=== PATIENT | male | born 1960 | race Caucasian/White ===

== ENCOUNTER → 2017-06-06 | Outpatient (CLI) | payer OTHER ==
[~2017-06-06] MED LIST: ASPI1TAB PO; ISOVUE-370 76% 100ML VIAL (Q9967) As Ordered ONE; MELO7.5T7 PO; MULT1TAB10 PO; OMEP20CA3 PO
--- NOTE | 2017-06-06 12:42 | REP ---
WHOLE BODY BONE SCAN: Following the intravenous administration of 21 millicuries technetium 99m MDP, the patient's whole body is imaged in the anterior and posterior projections with additional oblique images of the thoracic and pelvis regions performed as well as lateral views of the calvarium, knees, and feet. There is focal arthritic uptake at the L2-3 disc space on the left and L4-5 disc space on the right. There is mild arthritic uptake at the sacroiliac joints and in the anterior inferior cervical spine region. There is mild arthritic uptake at the right hip. There is no compelling scintigraphic evidence of osseous metastases. Renal and bladder activity are seen. IMPRESSION: No compelling scintigraphic evidence of osseous metastases. Signed by Salvatore Sylvester MD 06/06/2017 05:35 P
--- NOTE | 2017-06-07 03:51 | REP ---
Clinical: Follow-up pulmonary nodule. Technique: Axial contrast enhanced images from the thoracic inlet to the upper abdomen using 100 ml Isovue 370 intravenous contrast material with coronal and sagittal re-formations. Comparison: CT abdomen/pelvis dated 05/16/2017. Findings: Innumerable scattered soft tissue pulmonary nodules are appreciated measuring approximately up to 9 mm diameter. Few nodules seen to demonstrate small punctate central calcification (RLL image 72 as example). No pleural effusion/reaction or pneumothorax. Tracheobronchial tree is patent. No significant axillary, hilar, or mediastinal adenopathy noted. Mild to moderate atherosclerotic changes to the thoracic aorta and coronary arteries identified without aortic aneurysm, cardiomegaly or pericardial effusion. Limited upper abdomen demonstrates normal bilateral adrenal glands. Surrounding musculoskeletal structures are intact. Impression: Bilateral scattered soft tissue pulmonary nodules up to 9 mm. Few nodules demonstrate small central calcifications and findings may reflect sequelae of prior granulomas disease. However, the lack of appropriate prior examinations for comparison warrant followup examination. Consider 6 -9 month initial followup examination unless prior examinations are some where available for comparison. No associated adenopathy. No further consolidation or effusion. Signed by Chuck Morales MD 06/07/2017 03:43 A
== END ==
LOC: M RAD 08:03
PROVIDERS: ATTEND Nurse Practitioner Family
DX: R91.1 Solitary pulmonary nodule (principal)
CPT/HCPCS: 71260; Q9967

== ENCOUNTER 2017-07-03 10:36 | Day surgery (SDC) | payer OTHER ==
[~2017-07-03] VITALS: Ht 175.3 cm; Wt 71.7 kg
[~2017-07-03 10:36] MED LIST changes: -ISOVUE-370 76% 100ML VIAL (Q9967) As Ordered ONE
[2017-07-03] MEDS ORDERED: NS 1,000 ML IV ONE (11:00)
[2017-07-03] MEDS ORDERED: LIDOCAINE 2% INJ 100 MG/5 ML SDV (FOR ANES.) As Ordered ONE (11:59)
[2017-07-03] MEDS ORDERED: PROPOFOL 200 MG/20 ML VIAL As Ordered ONE ×2 (11:59→12:13)
--- NOTE | 2017-07-03 12:11 | ROOR ---
Patient Name: Everardo Quintana Procedure Date: 07/03/2017 11:57 AM Date of : 1960 Age: 56 Room: [facility] Gender: Male Note Status: Finalized Procedure: Upper Endoscopy + Biopsies Indications: Heartburn, Exclusion of Duke's esophagus Providers: Adriano Henry MD Referring MD: NATALIE BRASHER NP Requesting Provider: Medicines: Monitored Anesthesia Care Complications: No immediate complications. Procedure: Pre-Anesthesia Assessment: - The heart rate, respiratory rate, oxygen saturations, blood pressure, adequacy of pulmonary ventilation, and response to care were monitored throughout the procedure. The Endoscope was introduced through the mouth, and advanced to the second part of duodenum. The upper GI endoscopy was accomplished without difficulty. The patient tolerated the procedure well. Findings: The Z-line was irregular and was found 40 cm from the incisors. Multiple biopsies were obtained with cold forceps for evaluation to rule out Duke's Esophagus randomly at the gastroesophageal junction. A small hiatal hernia was present. No other significant abnormalities were identified in a careful examination of the stomach. Biopsies were taken with a cold forceps in the gastric antrum for Helicobacter pylori testing. Diffuse mildly erythematous mucosa without active bleeding and with no stigmata of bleeding was found in the duodenal bulb. The exam was otherwise without abnormality. Impression: - Z-line irregular, 40 cm from the incisors. - Small hiatal hernia. - Erythematous duodenopathy. - The examination was otherwise normal. - Multiple biopsies were obtained at the gastroesophageal junction. - Biopsies were taken with a cold forceps for Helicobacter pylori testing. - The examination was otherwise normal. Recommendation: - Patient has a contact number available for emergencies. The signs and symptoms of potential delayed complications were discussed with the patient. Return to normal activities tomorrow. Written discharge instructions were provided to the patient. - High fiber diet. - Discharge patient to home. - Continue present medications. - Follow an antireflux regimen. - Return to referring physician. - The findings and recommendations were discussed with the patient's family. Adriano Henry MD Adriano Henry MD 07/03/2017 12:11:23 PM This report has been signed electronically. Number of Addenda: 0 Note Initiated On: 07/03/2017 11:57 AM Estimated Blood Loss: Estimated blood loss: none.
--- NOTE | 2017-07-03 12:27 | ROOR ---
Patient Name: Everardo Quintana Procedure Date: 07/03/2017 11:58 AM Date of : 1960 Age: 56 Room: [facility] Gender: Male Note Status: Finalized Procedure: Total Colonoscopy to Cecum + Biopsy Polypectomy Indications: High risk colon cancer surveillance: Personal history of colonic polyps, Last colonoscopy: 2012 Providers: Adriano Henry MD Referring MD: NATALIE BRASHER NP Requesting Provider: Medicines: Monitored Anesthesia Care Complications: No immediate complications. Procedure: Pre-Anesthesia Assessment: - The heart rate, respiratory rate, oxygen saturations, blood pressure, adequacy of pulmonary ventilation, and response to care were monitored throughout the procedure. The Colonoscope was introduced through the anus and advanced to the cecum, identified by appendiceal orifice and ileocecal valve. The colonoscopy was performed without difficulty. The patient tolerated the procedure well. The quality of the bowel preparation was excellent. Findings: The perianal and digital rectal examinations were normal. Non-bleeding internal hemorrhoids were found during retroflexion. The hemorrhoids were small and Grade I (internal hemorrhoids that do not prolapse). Scattered small-mouthed diverticula were found in the recto-sigmoid colon, sigmoid colon and descending colon. A small polyp was found in the mid ascending colon. The polyp was sessile. The polyp was removed with a jumbo cold forceps. Resection and retrieval were complete. A small polyp was found in the transverse colon. The polyp was sessile. The polyp was removed with a jumbo cold forceps. Resection and retrieval were complete. The exam was otherwise without abnormality on direct and retroflexion views. Impression: - Non-bleeding internal hemorrhoids. - Diverticulosis in the recto-sigmoid colon, in the sigmoid colon and in the descending colon. - One small polyp in the mid ascending colon, removed with a jumbo cold forceps. Resected and retrieved. - One small polyp in the transverse colon, removed with a jumbo cold forceps. Resected and retrieved. - The examination was otherwise normal on direct and retroflexion views. - The exam was otherwise normal to the cecum. Recommendation: - Patient has a contact number available for emergencies. The signs and symptoms of potential delayed complications were discussed with the patient. Return to normal activities tomorrow. Written discharge instructions were provided to the patient. - High fiber diet. - Discharge patient to home. - Continue present medications. - Await pathology results. - Telephone GI clinic for pathology results in 1 week. - Repeat colonoscopy in 5 years for surveillance based on pathology results. - Return to referring physician. - The findings and recommendations were discussed with the patient's family. Adriano Henry MD Adriano Henry MD 07/03/2017 12:27:12 PM This report has been signed electronically. Number of Addenda: 0 Note Initiated On: 07/03/2017 11:58 AM Estimated Blood Loss: Estimated blood loss: none.
[2017-07-03 12:53] VITALS: BP 160/86
== END 2017-07-03 12:57 | disposition home or self-care (01) ==
LOC: M OPP 10:36
PROVIDERS: ATTEND Internal Medicine Gastroenterology
DX: Z12.11 Encounter for screening for malignant neoplasm of colon (principal); Z86.010 Personal history of colon polyps; D12.2 Benign neoplasm of ascending colon; D12.3 Benign neoplasm of transverse colon; K64.0 First degree hemorrhoids; K57.30 Diverticulosis of large intestine without perforation or abscess without bleeding; R12 Heartburn; K22.8 Other specified diseases of esophagus; K44.9 Diaphragmatic hernia without obstruction or gangrene; K29.70 Gastritis, unspecified, without bleeding; K21.9 Gastro-esophageal reflux disease without esophagitis; I10 Essential (primary) hypertension; E78.5 Hyperlipidemia, unspecified; E11.9 Type 2 diabetes mellitus without complications; F19.10 Other psychoactive substance abuse, uncomplicated; Z88.0 Allergy status to penicillin; Z79.82 Long term (current) use of aspirin; Z79.899 Other long term (current) drug therapy; Z87.891 Personal history of nicotine dependence

== ENCOUNTER 2017-09-24 06:04 | Day surgery (SDC) | payer OTHER ==
[2017-09-24] MEDS: LR 1,000 ML IV (07:09)
[2017-09-24] MEDS: BUPIVACAINE HCL 0.25% 30 ML VIAL As Ordered (07:09)
[2017-09-24] MEDS ORDERED: MIDAZOLAM INJ 2 MG/2 ML VIAL (J2250) As Ordered (07:12)
[2017-09-24] MEDS ORDERED: fentaNYL 100 MCG/2 ML INJECTION (J3010) As Ordered ×2 (07:12→07:47)
[2017-09-24] MEDS ORDERED: ROCURONIUM BROMIDE 50 MG/5 ML VIAL As Ordered (07:12)
[2017-09-24] MEDS ORDERED: PROPOFOL 200 MG/20 ML VIAL As Ordered (07:12)
[2017-09-24] MEDS ORDERED: LIDOCAINE 2% INJ 100 MG/5 ML SDV (FOR ANES.) As Ordered (07:12)
[2017-09-24] MEDS: BUPIVACAINE LIPOSOME/PF 1.3% 20 ML VIAL (13.3MG/ML)(EXPAREL) As Ordered (08:46)
[2017-09-24] MEDS ORDERED: PERCOCET 5MG/325MG TAB As Ordered (09:15)
[2017-09-24] MEDS: PERCOCET 5MG/325MG TAB PO (09:15)
[2017-09-24] MEDS ORDERED: NORCO, ANEXSIA 5/325MG TABLET (HYDROcodone/ACETAMINOPHEN) PO (09:30)
[2017-09-24] MEDS ORDERED: ACETAMINOPHEN TAB 650MG DOSE (2X325MG) PO (09:30)
[2017-09-24] MEDS ORDERED: fentaNYL 100 MCG/2 ML INJECTION (J3010) IV (09:30)
[2017-09-24] MEDS ORDERED: ONDANSETRON 4MG/2ML VIAL (J2405) IV (09:30)
[2017-09-24] MEDS ORDERED: HYDROmorphone HCL 1 MG/ML SYRINGE (J1170) IV (09:30)
[2017-09-24] MEDS ORDERED: LR 1,000 ML IV (09:30)
== END 2017-09-24 10:48 | disposition home or self-care (01) ==
LOC: M SDC 06:04
DX: K40.90 Unilateral inguinal hernia, without obstruction or gangrene, not specified as recurrent (principal); K21.9 Gastro-esophageal reflux disease without esophagitis; M54.5 Low back pain; G89.29 Other chronic pain; F12.90 Cannabis use, unspecified, uncomplicated; Z88.0 Allergy status to penicillin; Z79.899 Other long term (current) drug therapy; Z79.82 Long term (current) use of aspirin
CPT/HCPCS: 49505

== ENCOUNTER → 2019-06-03 | Outpatient (REF) | payer OTHER ==
[~2019-06-03] MED LIST changes: -ASPI1TAB PO; +ASPI81TA26 PO; -OMEP20CA3 PO; +OMEP20CA4 PO
[2019-06-03 16:43] LABS: BLOOD UREA NITROGEN 19 MG/DL (7-18); CREATININE FOR GFR 0.81 MG/DL (0.70-1.30); GLOMERULAR FILTRATION RATE > 60.0 (>49)
== END ==
LOC: M LABDRAW1 15:17
PROVIDERS: ATTEND Physical Medicine & Rehabilitation
DX: M47.27 Other spondylosis with radiculopathy, lumbosacral region (principal)

== ENCOUNTER → 2020-02-05 | Outpatient (REF) | payer SELFPAY ==
[~2020-02-05] MED LIST changes: +OMEP1CAP73 PO; -OMEP20CA4 PO
[2020-02-05 18:42] LABS: AMORPHOUS SEDIMENT SMALL (NEGATIVE); APPEARANCE, URINE CLEAR (CLEAR); BACTERIA, URINE AUTO NEGATIVE (NEGATIVE); BILIRUBIN, URINE AUTO NEGATIVE (NEGATIVE); BLOOD, URINE BLOOD NEGATIVE (NEGATIVE); COLOR, URINE YELLOW (YELLOW); GLUCOSE, URINE (UA) AUTO NEGATIVE (NEGATIVE); KETONE, URINE AUTO NEGATIVE (NEGATIVE); LEUKOCYTE ESTERASE, URINE AUTO NEGATIVE (NEGATIVE); MUCUS, URINE SMALL (NEGATIVE); NITRITE, URINE AUTO NEGATIVE (NEGATIVE); PROTEIN, URINE AUTO NEGATIVE (NEGATIVE); RBC, URINE AUTO 0 /HPF (0-3); SPECIFIC GRAVITY URINE AUTO 1.021 (1.002-1.035); SQUAMOUS EPITHELIAL CELL UR AU 0 /HPF (0-6); UROBILINOGEN, URINE AUTO 0.2 mg/dL (0.0-2.0); WBC, URINE AUTO 1 /HPF (0-3)
== END ==
LOC: M SMT 16:46
PROVIDERS: ATTEND Nurse Practitioner Family
DX: R39.15 Urgency of urination (principal)

== ENCOUNTER → 2020-05-26 | Outpatient (CLI) | payer OTHER ==
[~2020-05-26] MED LIST changes: +ECOT81TA5 PO; +GABA-845 PO; +LEVO750T13 PO; +PERC5TAB12 PO
[2020-05-26 11:05] LABS: RED BLOOD COUNT 4.28 10^6/uL (4.30-6.10); WHITE BLOOD COUNT 6.7 10^3/uL (4.0-10.0)
[2020-05-26 11:06] LABS: HEMATOCRIT 42.3 % (42.0-52.0); HEMOGLOBIN 13.7 g/dl (13.5-17.5); MEAN CORPUSCULAR HGB CONC 32.4 g/dl (32.0-36.5); MEAN CORPUSCULAR VOLUME 98.8 fl (80.0-96.0); PLATELET COUNT, AUTOMATED 337 10^3/uL (150-450)
[2020-05-26 11:17] LABS: INR 0.89; PROTHROMBIN TIME 12.2 SECONDS (12.5-14.3)
[2020-05-26 11:31] LABS: ALBUMIN 3.6 GM/DL (3.2-5.2); ALT/SGPT 36 U/L (12-78); BILIRUBIN,TOTAL 0.5 MG/DL (0.2-1.0); BLOOD UREA NITROGEN 24 MG/DL (7-18); CALCIUM LEVEL 8.8 MG/DL (8.8-10.2); CARBON DIOXIDE LEVEL 29 MEQ/L (21-32); CHLORIDE LEVEL 107 MEQ/L (98-107); CREATININE FOR GFR 0.73 MG/DL (0.70-1.30); GLOMERULAR FILTRATION RATE > 60.0 (>49); GLUCOSE, FASTING 65 MG/DL (70-100); POTASSIUM SERUM 4.3 MEQ/L (3.5-5.1); SODIUM LEVEL 141 MEQ/L (136-145); TOTAL PROTEIN 6.3 GM/DL (6.4-8.2)
[2020-05-26 11:54] LABS: ERYTHROCYTE SEDIMENTATION RATE 4 mm/hr (0-20)
--- NOTE | 2020-05-26 19:34 | ECGEPIP ---
[facility] Test Date: 2020-05-26 Pat Name: COREEN KEVIN Department: Room: - Gender: Male Supplier Quality Manager: BECCA : 1960 Requested By: Susie Ash Order Number: [id number] Reading MD: Jacqui Tyler Measurements Intervals [place] Rate: 64 P: 70 VA: 142 QRS: 38 QRSD: 92 T: 38 QT: 377 QTc: 390 Interpretive Statements SINUS RHYTHM NO PRIOR Electronically Signed on 05-26-2020 19:34:31 EDT by Jacqui Tyler
--- NOTE | 2020-05-30 10:47 | REP ---
TWO-VIEW CHEST HISTORY: Preop osteoarthritis right hip. TECHNIQUE: Two views of the chest are performed. FINDINGS: There is no acute infiltrate. There are a few scattered subtle nodular opacities seen in the lungs, which are evaluated on the recent CT of the chest 05/16/2020 and are chronic in nature, presumably granulomas. Heart is normal in size. There is calcification of the thoracic aorta. Mediastinal silhouette is unchanged. Two metallic anchors are seen in the right humerus. There are mild degenerative changes of the spine. IMPRESSION: No evidence of acute pulmonary disease. MTDD
== END ==
LOC: M LAB 08:35
PROVIDERS: ATTEND Orthopaedic Surgery
DX: Z01.818 Encounter for other preprocedural examination (principal); M16.11 Unilateral primary osteoarthritis, right hip

== ENCOUNTER → 2020-06-01 | Outpatient (CLI) | payer OTHER, SELFPAY | LOC: M LABSMTC 10:52 | PROVIDERS: ATTEND Anesthesiology | DX: Z01.812 Encounter for preprocedural laboratory examination (principal); Z20.828 Contact with and (suspected) exposure to other viral communicable diseases | CPT/HCPCS: C9803; U0003 ==

== ENCOUNTER 2020-06-06 06:04 | Inpatient (IN) | payer OTHER ==
--- NOTE | 2020-06-01 08:01 | CR ---
PRE-OPERATIVE CONSULTATION DATE OF CONSULTATION: 05/31/2020 REASON FOR CONSULTATION: Right YESENIA at [facility] with Dr. Mihir Cody 06/06/2020. SUBJECTIVE: Thank you for asking me to see Mr. Everardo Quintana in consultation prior to his right YESENIA. He is as you know a 59-year-old gentleman with a past medical history of diet controlled hypertension, hyperglycemia, chronic low back/neck pain and osteoarthritis of the right hip presenting for pre-op optimization. Patient reports he has been in his usual state of health. He did have physical therapy for neck pain with significant improvements and tries to remember to do his home regimen. He is able to continue to walk, previously walked 4-5 miles a day now walking 1.5 miles a day predominantly because of his hip. He denies any associated chest pain, palpitations, syncope or presyncope. Because of his chronic neck and back pain he is on gabapentin 600 mg twice a day with good results. Patient also is using CBD products; reports he is no longer using Celebrex. He finds the CBD products have been helpful with his sleep, pain, anxiety and hypertension. Patient has a history of GERD, previously was on omeprazole; he has no longer needed these products. Patient notes that he has been maintained on atorvastatin, discontinued it because of myalgias. This was his second attempt to take atorvastatin. He is no longer interested in taking a statin medication. REVIEW OF SYSTEMS: Patient otherwise denies any fevers or chills, chest pain or shortness of breath, nausea or vomiting, change in bowels. PAST MEDICAL HISTORY: * Prediabetes. * Hypertension. * Transaminitis. * History of a torn right rotator cuff surgery. * Low back pain maintained on gabapentin. * Cervicalgia status post PT summer. * Colonic polyps status post colonoscopy 06/23/17, repeat 5 years. * Osteoarthritis, DJD advanced in the right hip. * Pulmonary nodules 2016, annual follow up at pulmonary showed stability. * Hyperlipidemia. * GERD; history of omeprazole use. MEDICATIONS: He is presently on: * Baby aspirin 81 mg daily. * CBD oil daily. * Gabapentin 600 mg 2-3 times a day. * Multivitamin daily. ALLERGIES: PENICILLIN with a reaction of hives. 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 FAMILY HISTORY: at 26 from a motor vehicle accident, at 56 of a bullous lung disease. PHYSICAL EXAMINATION: Thin male, no acute distress. Weight 165 with a BMI of 25.3, blood pressure 120/80 with a heart rate of 96, O2 sat is 96. HEENT: Head is normocephalic. Pupils equal, reactive to light, external ocular movements are intact. He does wear bilateral hearing aids which were not removed. He wears eye glasses as well as he has a mask on today. Neck: Supple. No cervical lymphadenopathy, JVD or thyromegaly are noted. Respiratory: Clear to auscultation, resonant to percussion. Cardiovascular: Regular rate, rhythm, no murmur, rub, or gallop. Abdomen: Normal active bowel sounds, soft, nontender, no hepatosplenomegaly. : Deferred. Extremities: Some OA changes of his DIP joints. Dermatologic: No rashes, bruises, abnormal lesions. Neurologic: Intact. He is alert and oriented with symmetric, brisk reflexes. LABORATORY DATA: 05/26/2020: Normal PT-INR. Glucose 65. Normal GFR, med profile. Normal liver. Normal CBC, sedimentation rate is only 4. Patient's last A1c 03/02/2020 was 6.1. Last lipid showed a total cholesterol of 187, triglycerides 80, HDL 75, LDL 96. His PSA was only 0.57. RADIOLOGY STUDIES: EKG 05/26/2020: Normal sinus rhythm, rate of 64, axis of 38, normal AL, QRS, QTC interval, normal R-wave progression, no atrial ventricular hypertrophy, no pathologic Q-waves. He does some subtle repolarization changes. Patient's chest x-ray 05/26/2020: No evidence of acute pulmonary disease, stable nodular opacities consistent with granuloma. Patient also had a CT scan of the chest 05/15/2020 for pulmonary nodules showing chronic stable changes. IMPRESSION: Mr. Everardo Quintana is a 59-year-old gentleman with a past medical history of hypertension, hyperlipidemia, prediabetes has no signs/symptoms indicative of cardiovascular ischemia is felt to be optimized and at low risk for cardiovascular complications. Risks can be further minimized by the following: Problems: 1. Hyperlipidemia: Patient self discontinued statin. Aspirin is on-hold for 1 week prior to surgery. I have encouraged diet and exercise. We will re-evaluate in August. Patient finds atorvastatin caused myalgias. 2. Hypertension: Diet controlled. No need for pharmacologic therapy. 3. Hyperglycemia: Diet, exercise, carb restriction. 4. OA: On gabapentin and I have approved this perioperatively otherwise hold all supplements including the CBD oil, turmeric, vitamin the morning of surgery. 5. Transaminitis: Resolved. 6. GERD: Controlled without pharmacologic therapy. Thank you very much for his consultation. Please call with questions or concerns. RASHEEDA
[~2020-06-06] VITALS: Ht 175.3 cm; Wt 73.5 kg
[2020-06-06] VITALS (7 sets, daily range): BP systolic 121–158; BP diastolic 67–88
[~2020-06-06 06:04] MED LIST changes: -ECOT81TA5 PO; -LEVO750T13 PO; -PERC5TAB12 PO
[2020-06-06] MEDS ORDERED: ACETAMINOPHEN 500 MG TAB PO ONE (06:30)
[2020-06-06] MEDS ORDERED: LR 1,000 ML IV ONE (06:30)
[2020-06-06] MEDS ORDERED: VANCOMYCIN HCL 1,000 MG, VIAL MATE ADAPTER 1 EACH in D5W 250 ML IV ONE (06:30)
--- NOTE | 2020-06-06 07:05 | HPE ---
DATE OF ADMISSION: 06/06/2020 PHYSICIAN: Dr. Mihir Cody CHIEF COMPLAINT: Right hip pain. HISTORY OF PRESENT ILLNESS: Mr. Quintana is a pleasant 59-year-old male with progressively worsening right hip pain and stiffness. He has failed to improve with conservative treatment. He has elected for surgery for his continued symptoms. He has pain with weightbearing activities and his activities of daily living. X-rays of his hip are notable for advanced osteoarthritis of the right hip joint. He has consented for a right total hip arthroplasty by Dr. Mihir Cody. Medical optimization was performed by Dr. Rogel's office. ALLERGIES: PENICILLIN. CURRENT MEDICATIONS: Gabapentin 600 mg three times a day MEDICAL HISTORY: Health maintenance. PAST SURGICAL HISTORY: Right shoulder and abdominal hernia repair. SOCIAL HISTORY: This gentleman does not smoke and rarely drinks alcohol. FAMILY HISTORY: Noncontributory. REVIEW OF SYSTEMS: This patient denies chest pain, heart palpitations, cough, wheezing, difficulty breathing, and shortness of breath. He denies abdominal pain, nausea, vomiting, diarrhea, or constipation. He denies recent upper respiratory infection or urinary tract infection symptoms. He does complain of persistent pain in his right hip. PHYSICAL EXAMINATION: GENERAL: He is a well-nourished, well-developed in no acute distress, alert male. He ambulates with a mild limp favoring his right lower extremity. He is not using assistive devices. VITAL SIGNS: He is 68 inches tall and weighs 165.5 pounds, temperature 97.1, blood pressure 127/85, respirations 15, and pulse of 66. NECK: Supple without adenopathy or jugular venous distention. There were no carotid bruits appreciated upon auscultation. LUNGS: Clear to auscultation without rales or wheeze throughout. HEART: Regular rate and rhythm. ABDOMEN: Bowel sounds were present. EXTREMITIES: Examination of the hip revealed intact skin. He had decreased range of motion on exam due to pain and stiffness. The limb was neurovascularly intact. LABORATORY DATA: Chest x-ray showed no acute cardiopulmonary disease processes. EKG showed sinus rhythm at 64 beats per minute. Protime was 12.2, INR 0.89. Glucose 65, BUN 24, creatinine 0.73, sodium 141, potassium 4.3. CBC showed a red count of 4.28 an MCV of 98.8, otherwise well nourished with a sedimentation rate of 4. IMPRESSION: Symptomatic osteoarthritis of the right hip. PLAN: Consented for a right total hip arthroplasty by Dr. Mihir Cody. RASHEEDA
[2020-06-06] MEDS ORDERED: ceFAZolin 1GM VIAL (J0690 PER 500MG) As Ordered ONE (07:09)
[2020-06-06] MEDS ORDERED: TRANEXAMIC ACID 100 MG/ML 10ML VIAL As Ordered ONE (07:09)
[2020-06-06] MEDS ORDERED: EPINEPHrine INJ 1 MG/ML 1ML AMP As Ordered ONE (07:09)
[2020-06-06] MEDS ORDERED: CLINDAMYCIN INJ 900MG/6ML VIAL As Ordered ONE (07:17)
[2020-06-06] MEDS ORDERED: propofoL 200 MG/20 ML VIAL As Ordered ONE ×2 (07:18→08:46)
[2020-06-06] MEDS ORDERED: LIDOCAINE 2% 100MG/5ML SDV (FOR ANES.) As Ordered ONE (07:18)
[2020-06-06] MEDS ORDERED: MIDAZOLAM INJ 2MG/2ML VIAL (J2250 PER 1MG) As Ordered ONE (07:19)
[2020-06-06] MEDS ORDERED: fentaNYL 100 MCG/2 ML INJECTION (J3010) As Ordered ONE (07:19)
[2020-06-06] MEDS ORDERED: ePHEDrine SULFATE 25 MG/5 ML(5MG/ML) SYRINGE As Ordered ONE ×2 (08:10→08:44)
[2020-06-06] MEDS ORDERED: ACETAMINOPHEN 1000MG 100ML IV BTL (OFIRMEV) (J0131 PER 10MG) As Ordered ONE (08:20)
[2020-06-06] MEDS ORDERED: ONDANSETRON 4MG/2ML VIAL As Ordered ONE (08:20)
[2020-06-06] MEDS ORDERED: PHENYLephrine HCL 500 MCG/5 ML (100MCG/ML) SYRINGE (J2370) As Ordered ONE (08:28)
[2020-06-06] MEDS ORDERED: METOCLOPRAMIDE INJ 10MG/2ML VIAL (J2765 PER 1) IV PRN (10:00)
[2020-06-06] MEDS ORDERED: LR 1,000 ML IV SCH ×2 (10:00→11:00)
[2020-06-06] MEDS ORDERED: ONDANSETRON 4MG/2ML VIAL IV PRN ×2 (10:00→11:00)
[2020-06-06] MEDS ORDERED: fentaNYL 100 MCG/2 ML INJECTION (J3010) IV PRN (10:00)
[2020-06-06] MEDS ORDERED: MORPHINE 2 MG/ML 1ML VIAL (J2270) IV PRN (10:00)
[2020-06-06] MEDS ORDERED: PERCOCET 5MG/325MG TAB PO PRN ×4 (10:00→20:30)
--- NOTE | 2020-06-06 10:13 | REP ---
INDICATION: POST OP IN PACU Status post arthroplasty. COMPARISON: None. TECHNIQUE: AP and frog-lateral views of the right hip FINDINGS: The patient is status post right hip replacement with normal positioning and appearance to the femoral and acetabular components. Overlying postsurgical changes appreciated. IMPRESSION: Satisfactory right hip replacement radiographs. <Electronically signed by Chuck Morales > 06/06/20 [id number]
[2020-06-06] MEDS ORDERED: MORPHINE 4 MG/ML 1ML VIAL/SYRINGE (J2270) IV PRN (11:00)
[2020-06-06] MEDS: MORPHINE 2 MG/ML 1ML VIAL (J2270) IV PRN ×2 (12:40→18:32)
--- NOTE | 2020-06-06 12:56 | HPEPDOC ---
General Date of Admission 06/06/20 Date of Service: Jun 06, 2020 Chief Complaint The patient is a 59-year-old male admitted with a reason for visit of Right Hip Arthritis. History of Present Illness Consultation Report: Consultation requested by Orthopedics Consultation for : management of medical commorbidities in the post operative period. HPI: 59-year-old male with progressively worsening right hip pain and stiffness. He has failed to improve with conservative treatment. He has elected for surgery for his continued symptoms. He was admitted for elective right total hip arthroplasty. Complains of right hip pain about 4/10, sharp aching type, no radiation. Home Medications Scheduled Aspirin (Ecotrin) 81 Mg Tablet.dr, 81 MG PO BID for pain Gabapentin (Gabapentin) 400 Mg Capsule, 600 MG PO BID, (Reported) Multivitamins (Multivitamin Adults) 1 Tab Tab, 1 TAB PO DAILY, (Reported) Scheduled PRN Oxycodone HCl/Acetaminophen (Percocet 5-325 mg Tablet) 1 Each Tablet, 1-2 TAB PO Q4H PRN for PAIN Allergies Coded Allergies: Penicillins (Verified Allergy, Unknown, CHILD -HIVES/RASH, 05/31/20) Past Medical History Medical History Prediabetes. Hypertension. Transaminitis. History of a torn right rotator cuff surgery. Low back pain maintained on gabapentin. Cervicalgia status post PT summer. Colonic polyps status post colonoscopy 06/23/17, repeat 5 years. Osteoarthritis, DJD advanced in the right hip. Pulmonary nodules 2016, annual follow up at pulmonary showed stability. Hyperlipidemia. GERD; history of omeprazole use. Surgical History Right shoulder repair, abdominal hernia repair Family History Significant Family History: COPD Social History * Smoker: non-smoker Alcohol: occationally Drugs: marijuana A-FIB/CHADSVASC A-FIB History Current/History of A-Fib/PAF?: No Review of Systems Constitutional: Denies: Chills, Fever, Night Sweats Eyes: Denies: Pain, Vision change ENT: Denies: Head Aches, Ear Pain, Dysphagia Skin: Denies: Rash, Lesions, Breakdown Pulmonary: Denies: Dyspnea, Cough Cardiovascular: Denies: Chest Pain, Palpitations, Orthopnea, Paroxysmal Noc. Dyspnea, Lt Headedness Gastrointestinal: Denies: Nausea, Vomiting, Abdominal Pain, Diarrhea Genitourinary: Denies: Dysuria, Frequency, Incontinence, Retention Hematologic: Denies: Bruising, Bleeding Excessively Musculoskeletal: Reports: Joint Pain Physical Examination General Exam: Positive: Alert, Cooperative, No Acute Distress Eye Exam: Positive: PERRLA, Conjunctiva & lids normal, EOMI; Negative: Sclera icteric ENT Exam: Positive: Atraumatic, Mucous membr. moist/pink, Pharynx Normal Neck Exam: Positive: Supple; Negative: JVD, thyromegaly Chest Exam: Positive: Clear to auscultation, Normal air movement Heart Exam: Positive: Rate Normal, Regular Rhythm, Normal S1, Normal S2; Negative: Murmurs, Rubs Abdomen Exam: Positive: Normal bowel sounds, Soft; Negative: Tenderness, Hepatospenomegaly Extremity Exam: Negative: Clubbing, Cyanosis, Edema Skin Exam: Positive: Nl turgor and temperature; Negative: Breakdown, Lesion Psych Exam: Positive: Mental status NL, Mood NL, Oriented x 3 Vital Signs Vital Signs Date Time Temp Pulse Resp B/P (MAP) Pulse Ox O2 Delivery O2 Flow Rate FiO2 06/06/20 12:40 17 06/06/20 12:24 97.9 88 158/88 (111) 98 Room Air 06/06/20 10:05 2 Laboratory Data Labs 24H Laboratory Tests 2 06/06/20 06:58: Bedside Glucose (Misc Panel) 115 Assessment/Plan 59-year-old male with progressively worsening right hip pain and stiffness. He has failed to improve with conservative treatment. He has elected for surgery for his continued symptoms. He was admitted for elective right total hip arthroplasty. S/p Right total hip arthroplasty pain control and dvt prophylaxis as per orthopedics PT/OT Hypertension diet controlled. Not on any medications Hyperlipidemia/ prediabetes diet controlled GERD diet controlled OA On gabapentin Plan / VTE VTE Prophylaxis Ordered?: Yes OPAL QUARLES MD Jun 06, 2020 12:55
[2020-06-06] MEDS: MULTIVITAMINS/MINERALS THERAP 1 TAB PO SCH (13:24)
--- NOTE | 2020-06-06 15:44 | RO ---
DATE OF OPERATION: 06/06/2020 PREOPERATIVE DIAGNOSIS: Right hip degenerative arthritis. POSTOPERATIVE DIAGNOSIS: Right hip degenerative arthritis. PROCEDURE: Right total hip arthroplasty using a size 5 standard offset Aiken stem with a +5 neck, 40 mm ceramic head 56 mm Gription Sector cup with a 40 mm neutral polyethylene liner. Prosthesis was made by [employer]. SURGEON: Susie Cody M.D. [employer] ATTENDANT: Mr. Jose Allison COMPLICATIONS: None. SPECIMENS: Femoral head. ESTIMATED BLOOD LOSS: 200 mL. PROCEDURE: Antibiotics were given intravenously preoperatively and a successful spinal anesthetic was induced. He was placed in the lateral decubitus position with moderate L-hip positioner utilized, down leg well padded, especially peroneal nerve, and axillary roll was utilized. Right hip area was carefully prepped and draped in the usual sterile fashion. After appropriate time out, a longitudinal incision was made for a direct lateral approach to the hip. Bovie cautery was used to coagulate the crossing vessels down to the tensor fascia which was divided in line with the skin incision. We then split the gluteus medius at the anterior one-third and posterior two-third junction, down to the gluteus minimus and anterior hip capsule carefully dissecting off the proximal femur as we externally rotated the hip and eventually dislocated and placed the leg in a leg bag anteriorly. The piriformis fossa was identified, starter reamer placed followed by the canal finding reamer, then the lateralizing reamer, and then we reamed up to a size 5. Femoral neck osteotomy was performed using the saw and template. We then broached up to size 5. We then exposed the acetabulum, performed a labral excision 360 degrees and began reaming, first with 49 mm reamer down such that I was to the floor of the acetabulum and then expanded up to 55. A 56 trial fit nicely. There was some question of stability thus I did out of precaution open Sector cup in case we needed screws. We copiously irrigated out the acetabulum and then placed the real 56 Gription Sector cup using the extramedullary alignment jig to estimate our abduction and version and he had excellent purchase and I did not feel screws were necessary. A central hole eliminator was placed, polyethylene placed and we placed trial #5 broach after copiously irrigating out femoral canal as I did several times throughout the operation. We trialed first with 1.5 neck length with 40 mm head, he was very stable to flexion, internal rotation, and extension, external rotation, but he did have some excess telescoping thus I felt the +5 would be ideal. I did trial with +5 and this did improve his telescoping but he had stable construct, thus I elected to use that size femoral neck. The trial broach was removed, irrigated out the femoral canal again and placed #5 real Aiken stem and then tried the trunnion and placed the 40 mm ceramic head and then reduced the hip after copiously irrigating once again. We then closed the hip in layers, first the anterior hip capsule and gluteus minimus back to its anatomic position with interrupted #1 PDS sutures. We closed the gluteus medius in separate layer with interrupted #1 PDS sutures, irrigating between layers and then closed the tensor fascia with combination of #1 PDS sutures and running #1 Stratafix, irrigating between layers. We closed the deep subdermal tissues with interrupted 2-0 PDS suture and the skin was closed with sanjuana, covered by an Optifoam and dry sterile bulky dressing. He was then turned supine and transferred to the recovery room in stable condition. There were no intraoperative complications. Mr. Jose Allison was critical to the success of this difficult procedure by helping with appropriate soft tissue manipulation, help in dislocating and relocating the hip several times throughout the operation, helped to prepare the patient, positioned, helped to close the wound amongst many other tasks to allow me to perform the operation smoothly, efficiently and safely. RASHEEDA
[2020-06-06] MEDS: VANCOMYCIN HCL 1,000 MG, VIAL MATE ADAPTER 1 EACH in D5W 250 ML IV SCH (18:32)
[2020-06-06] MEDS: PERCOCET 5MG/325MG TAB PO PRN (20:39)
[2020-06-06] MEDS ORDERED: GABAPENTIN 400 MG CAP PO SCH (21:00)
[2020-06-07] MEDS: PERCOCET 5MG/325MG TAB PO PRN ×3 (01:05→15:54)
[2020-06-07 02:00] VITALS: BP 145/86
[2020-06-07] MEDS ORDERED: RAMELTEON 8 MG TAB (ROZEREM) PO PRN (03:45)
[2020-06-07 06:00] VITALS: BP 146/86
[2020-06-07 06:16] LABS: HEMATOCRIT 35.6 % (42.0-52.0); HEMOGLOBIN 11.9 g/dl (13.5-17.5); MEAN CORPUSCULAR HEMOGLOBIN 32.3 pg (27.0-33.0); MEAN CORPUSCULAR HGB CONC 33.4 g/dl (32.0-36.5); MEAN CORPUSCULAR VOLUME 96.7 fl (80.0-96.0); PLATELET COUNT, AUTOMATED 294 10^3/uL (150-450); RED BLOOD COUNT 3.68 10^6/uL (4.30-6.10); WHITE BLOOD COUNT 10.4 10^3/uL (4.0-10.0)
[2020-06-07] MEDS: VANCOMYCIN HCL 1,000 MG, VIAL MATE ADAPTER 1 EACH in D5W 250 ML IV SCH (06:16)
[2020-06-07] MEDS ORDERED: ECOT81TA5 PO (06:29)
[2020-06-07] MEDS ORDERED: PERC5TAB12 PO (06:29)
[2020-06-07 06:36] LABS: ALBUMIN 2.9 GM/DL (3.2-5.2); ALT/SGPT 33 U/L (12-78); BLOOD UREA NITROGEN 13 MG/DL (7-18); CALCIUM LEVEL 8.2 MG/DL (8.8-10.2); CARBON DIOXIDE LEVEL 28 MEQ/L (21-32); CHLORIDE LEVEL 101 MEQ/L (98-107); CREATININE FOR GFR 0.72 MG/DL (0.70-1.30); GLOMERULAR FILTRATION RATE > 60.0 (>49); GLUCOSE, FASTING 132 MG/DL (70-100); POTASSIUM SERUM 4.2 MEQ/L (3.5-5.1); SODIUM LEVEL 135 MEQ/L (136-145); TOTAL PROTEIN 5.5 GM/DL (6.4-8.2)
[2020-06-07] MEDS ORDERED: FLUBLOK(EGG FREE)(QUAD)INFLUENZA VACC 0.5ML SYRINGE 18YRS & OLDER IM ONE (09:00)
[2020-06-07] MEDS ORDERED: ASPIRIN 81 MG ENTERIC TAB PO SCH (09:00)
[2020-06-07] MEDS: MOM 30ML SUSPENSION UDC PO SCH (09:26)
[2020-06-07] MEDS: MIRALAX *UNIT DOSE* 17GM PACKET PO SCH (09:26)
[2020-06-07] MEDS: ASPIRIN 81 MG ENTERIC TAB PO SCH ×2 (09:26→22:23)
[2020-06-07] MEDS: MORPHINE 15 MG SA TAB PO SCH ×2 (09:27→22:23)
[2020-06-07] MEDS: MULTIVITAMINS/MINERALS THERAP 1 TAB PO SCH (09:27)
[2020-06-07] MEDS: GABAPENTIN 300 MG CAP PO SCH ×2 (09:38→22:22)
[2020-06-07 10:00] VITALS: BP 147/93
[2020-06-07] MEDS: ACETAMINOPHEN TAB 650MG DOSE (2X325MG) PO PRN ×2 (11:15→19:49)
[2020-06-07 11:25] VITALS: BP 149/75
--- NOTE | 2020-06-07 11:58 | IPNPDOC ---
Text Note Date of Service The patient was seen on 06/07/20. NOTE Subjective: Karen spiked a fever of 101.1 this am. He also has a presyncopal episode inteh bathroom this am. He felt dizzy and light headed. Patient reports that his pain was uncontrolled overnight with the pain meds. He reports that this am he is very tired and just wants to sleep. Nurses report that he does not want to get out of bed or work with PT. Noted to have a little coughing during rounds. Physical Exam: Vitals: As below General Exam: Positive: Alert, Cooperative, No Acute Distress Eye Exam: Positive: PERRLA, Conjunctiva & lids normal, EOMI; Negative: Sclera icteric ENT Exam: Positive: Atraumatic, Mucous membr. moist/pink, Pharynx Normal Neck Exam: Positive: Supple; Negative: JVD, thyromegaly Chest Exam: Positive: few right basal crackles Normal air movement Heart Exam: Positive: Rate Normal, Regular Rhythm, Normal S1, Normal S2; Negative: Murmurs, Rubs Abdomen Exam: Positive: Normal bowel sounds, Soft; Negative: Tenderness, Hepatospenomegaly Extremity Exam: Negative: Clubbing, Cyanosis, Edema Skin Exam: Positive: Nl turgor and temperature; Negative: Breakdown, Lesion Psych Exam: Positive: Mental status NL, Mood NL, Oriented x 3 Labs and Radiology: reviewed 59-year-old male with progressively worsening right hip pain and stiffness. He has failed to improve with conservative treatment. He has elected for surgery for his continued symptoms. He was admitted for elective right total hip arthroplasty. Fever probably post operative / atelectasis No urinary complaints. will get CXR and an UA. encouraged to use incentive spirometry. Presyncope possibly vasovagal. could be due to fever/ pain no hypotension S/p Right total hip arthroplasty pain control and dvt prophylaxis as per orthopedics PT/OT Hypertension diet controlled. Not on any medications Hyperlipidemia/ prediabetes diet controlled GERD diet controlled OA On gabapentin VS,Fishbone, I+O VS, Fishbone, I+O Laboratory Tests 06/07/20 05:48 Vital Signs Date Time Temp Pulse Resp B/P (MAP) Pulse Ox O2 Delivery O2 Flow Rate FiO2 06/07/20 10:00 101.1 98 18 147/93 (111) 94 Room Air 06/06/20 10:05 2 I&O- Last 24 Hours up to 6 AM 06/07/20 06:00 Intake Total 3590 ml Output Total 1500 ml Balance 2090 ml OPAL QUARLES MD Jun 07, 2020 11:52
--- NOTE | 2020-06-07 12:27 | REP ---
INDICATION: fever COMPARISON: 05/26/2020 TECHNIQUE: Single frontal view of the chest FINDINGS: Mediastinum and cardiac silhouette are normal. No focal consolidation. Linear atelectasis at the left lung base noted. A small nodule versus asymmetric nipple shadow overlies the right lower lung zone midclavicular line which may warrant follow-up. No effusion. No pneumothorax. Skeletal structures demonstrate age-related changes. IMPRESSION: 1. Left basilar atelectasis. 2. Cannot exclude right lower lobe pulmonary nodule versus asymmetric nipple shadow and follow-up CT may be warranted for further investigation. <Electronically signed by Chuck Morales > 06/07/20 [id number]
[2020-06-07 13:50] VITALS: BP 139/73
[2020-06-07 14:07] LABS: APPEARANCE, URINE CLEAR (CLEAR); BACTERIA, URINE AUTO NEGATIVE (NEGATIVE); BILIRUBIN, URINE AUTO NEGATIVE (NEGATIVE); BLOOD, URINE BLOOD NEGATIVE (NEGATIVE); COLOR, URINE YELLOW (YELLOW); GLUCOSE, URINE (UA) AUTO NEGATIVE (NEGATIVE); KETONE, URINE AUTO NEGATIVE (NEGATIVE); LEUKOCYTE ESTERASE, URINE AUTO NEGATIVE (NEGATIVE); MUCUS, URINE SMALL (NEGATIVE); NITRITE, URINE AUTO NEGATIVE (NEGATIVE); PROTEIN, URINE AUTO NEGATIVE (NEGATIVE); RBC, URINE AUTO 0 /HPF (0-3); SPECIFIC GRAVITY URINE AUTO 1.009 (1.002-1.035); SQUAMOUS EPITHELIAL CELL UR AU 0 /HPF (0-6); UROBILINOGEN, URINE AUTO 0.2 mg/dL (0.0-2.0); WBC, URINE AUTO 3 /HPF (0-3)
[2020-06-07 22:00] VITALS: BP 148/91
[2020-06-08 06:00] VITALS: BP 143/90
[2020-06-08 06:17] LABS: HEMATOCRIT 32.2 % (42.0-52.0); HEMOGLOBIN 10.7 g/dl (13.5-17.5); MEAN CORPUSCULAR HEMOGLOBIN 32.1 pg (27.0-33.0); MEAN CORPUSCULAR HGB CONC 33.2 g/dl (32.0-36.5); MEAN CORPUSCULAR VOLUME 96.7 fl (80.0-96.0); PLATELET COUNT, AUTOMATED 279 10^3/uL (150-450); RED BLOOD COUNT 3.33 10^6/uL (4.30-6.10); WHITE BLOOD COUNT 11.7 10^3/uL (4.0-10.0)
[2020-06-08] MEDS: ACETAMINOPHEN TAB 650MG DOSE (2X325MG) PO PRN (06:34)
[2020-06-08 06:38] LABS: ALBUMIN 2.7 GM/DL (3.2-5.2); ALT/SGPT 79 U/L (12-78); BILIRUBIN,TOTAL 0.6 MG/DL (0.2-1.0); BLOOD UREA NITROGEN 12 MG/DL (7-18); CALCIUM LEVEL 8.1 MG/DL (8.8-10.2); CARBON DIOXIDE LEVEL 28 MEQ/L (21-32); CHLORIDE LEVEL 102 MEQ/L (98-107); CREATININE FOR GFR 0.72 MG/DL (0.70-1.30); GLOMERULAR FILTRATION RATE > 60.0 (>49); GLUCOSE, FASTING 123 MG/DL (70-100); POTASSIUM SERUM 4.4 MEQ/L (3.5-5.1); SODIUM LEVEL 136 MEQ/L (136-145); TOTAL PROTEIN 5.4 GM/DL (6.4-8.2)
--- NOTE | 2020-06-08 08:01 | REPVR ---
PROCEDURE INFORMATION: Exam: CT Chest Without Contrast Exam date and time: 06/08/2020 7:25 AM Age: 59 years old Clinical indication: Cough and fever; Additional info: Fever, cough TECHNIQUE: Imaging protocol: Computed tomography of the chest without contrast. 3D rendering (Not supervised by radiologist): MIP and/or 3D reconstructed images were created by the technologist. Radiation optimization: All CT scans at this facility use at least one of these dose optimization techniques: automated exposure control; mA and/or kV adjustment per patient size (includes targeted exams where dose is matched to clinical indication); or iterative reconstruction. COMPARISON: CT Chest with contrast 06/06/2017 8:32 AM FINDINGS: Lungs: There is mild volume loss with architectural distortion and bands of consolidation in the right lower lobe, most typical of atelectasis or postinflammatory scarring. It was not seen on the prior exam. Similar but less prominent changes are seen in the left lower lobe. There are multiple calcified granulomata in both lungs, as seen previously. The largest calcified nodule is in the left upper lobe and measures 7 x 10 mm. It is without significant change in size but demonstrates further interval calcification since the prior exam, and is consistent with a benign, calcified granuloma. Pleural space: No pneumothorax. No pleural effusion. Heart: The heart is normal in size. There is moderate atherosclerotic calcification of the coronary arteries. Mediastinal space: There is retained fluid within the esophagus. Aorta: The aorta demonstrates mild atherosclerotic calcification. Lymph nodes: No lymphadenopathy is seen. Bones/joints: Postoperative changes are seen in the right shoulder. Degenerative endplate changes are seen at multiple levels in the visualized spine. Soft tissues: The soft tissues appear unremarkable. IMPRESSION: 1. Multiple bilateral calcified granulomata. No imaging follow-up needed. 2. Mild volume loss with architectural distortion and band like consolidation in the right lower lobe and to a lesser extent the left lower lobe, which is most typical of atelectasis or postinflammatory scarring, but was not seen previously. 3. Retained fluid noted within the esophagus. Electronically signed by: Amy Delgado On 06/08/2020 08:01:09 AM
[2020-06-08] MEDS: ASPIRIN 81 MG ENTERIC TAB PO SCH ×2 (09:10→21:05)
[2020-06-08] MEDS: MOM 30ML SUSPENSION UDC PO SCH (09:10)
[2020-06-08] MEDS: MULTIVITAMINS/MINERALS THERAP 1 TAB PO SCH (09:10)
[2020-06-08] MEDS: MIRALAX *UNIT DOSE* 17GM PACKET PO SCH (09:11)
[2020-06-08] MEDS: GABAPENTIN 300 MG CAP PO SCH ×2 (09:11→21:05)
[2020-06-08] MEDS: MORPHINE 15 MG SA TAB PO SCH ×2 (09:11→21:05)
[2020-06-08] MEDS ORDERED: IBUPROFEN 600MG TAB PO ONE (10:15)
[2020-06-08] MEDS ORDERED: AUGMENTIN 875 MG TAB PO SCH (12:00)
--- NOTE | 2020-06-08 12:47 | IPNPDOC ---
Text Note Date of Service The patient was seen on 06/08/20. NOTE Subjective: Patient again spiked a fever of 102 last Night. Pain better con trolled today. using the incentive spirometry. Physical Exam: Vitals: As below General Exam: Positive: Alert, Cooperative, No Acute Distress Eye Exam: Positive: PERRLA, Conjunctiva & lids normal, EOMI; Negative: Sclera icteric ENT Exam: Positive: Atraumatic, Mucous membr. moist/pink, Pharynx Normal Neck Exam: Positive: Supple; Negative: JVD, thyromegaly Chest Exam: Positive: few right basal crackles, Normal air movement Heart Exam: Positive: Rate Normal, Regular Rhythm, Normal S1, Normal S2; Negative: Murmurs, Rubs Abdomen Exam: Positive: Normal bowel sounds, Soft; Negative: Tenderness, Hepatospenomegaly Extremity Exam: Negative: Clubbing, Cyanosis, Edema Skin Exam: Positive: Nl turgor and temperature; Negative: Breakdown, Lesion Psych Exam: Positive: Mental status NL, Mood NL, Oriented x 3 Labs and Radiology: reviewed 59-year-old male with progressively worsening right hip pain and stiffness. He has failed to improve with conservative treatment. He has elected for surgery for his continued symptoms. He was admitted for elective right total hip arthroplasty. Fever probably post operative atelectasis No urinary complaints. CXR noted. CT chest with bilateral atelectasis cannot rule out infiltrates on the right, multiple old granulomatous nodules. encouraged to use incentive spirometry. will give levofloxacin. Presyncope vasovagal. could be due to fever/ pain no hypotension S/p Right total hip arthroplasty pain control and dvt prophylaxis as per orthopedics PT/OT Hypertension diet controlled. Not on any medications Hyperlipidemia/ prediabetes diet controlled GERD diet controlled OA On gabapentin VS,Fishbone, I+O VS, Fishbone, I+O Laboratory Tests 06/08/20 05:12 Vital Signs Date Time Temp Pulse Resp B/P (MAP) Pulse Ox O2 Delivery O2 Flow Rate FiO2 06/08/20 09:11 17 Room Air 06/08/20 09:00 100.4 06/08/20 06:00 105 143/90 (107) 95 06/06/20 10:05 2 I&O- Last 24 Hours up to 6 AM 06/08/20 06:00 Intake Total 2285 ml Output Total 890 ml Balance 1395 ml OPAL QUARLES MD Jun 08, 2020 12:47
[2020-06-08] MEDS ORDERED: LevoFLOXacin 750 MG TABLET PO ONE (13:00)
[2020-06-08] MEDS: PERCOCET 5MG/325MG TAB PO PRN ×2 (13:18→18:05)
[2020-06-08 14:00] VITALS: BP 109/66
[2020-06-08 19:46] VITALS: BP 156/77
[2020-06-09] MEDS: PERCOCET 5MG/325MG TAB PO PRN ×2 (01:31→06:37)
[2020-06-09] MEDS: ACETAMINOPHEN TAB 650MG DOSE (2X325MG) PO PRN (05:22)
[2020-06-09 06:00] VITALS: BP 155/77
[2020-06-09] MEDS ORDERED: LevoFLOXacin 750 MG TABLET PO SCH (06:00)
[2020-06-09 07:16] LABS: HEMATOCRIT 28.3 % (42.0-52.0); HEMOGLOBIN 9.3 g/dl (13.5-17.5); MEAN CORPUSCULAR HEMOGLOBIN 32.1 pg (27.0-33.0); MEAN CORPUSCULAR HGB CONC 32.9 g/dl (32.0-36.5); MEAN CORPUSCULAR VOLUME 97.6 fl (80.0-96.0); PLATELET COUNT, AUTOMATED 275 10^3/uL (150-450); WHITE BLOOD COUNT 12.1 10^3/uL (4.0-10.0)
[2020-06-09 07:40] LABS: ALBUMIN 2.3 GM/DL (3.2-5.2); ALT/SGPT 75 U/L (12-78); BILIRUBIN,TOTAL 0.5 MG/DL (0.2-1.0); BLOOD UREA NITROGEN 17 MG/DL (7-18); CALCIUM LEVEL 8.2 MG/DL (8.8-10.2); CARBON DIOXIDE LEVEL 27 MEQ/L (21-32); CHLORIDE LEVEL 100 MEQ/L (98-107); CREATININE FOR GFR 0.75 MG/DL (0.70-1.30); GLOMERULAR FILTRATION RATE > 60.0 (>49); GLUCOSE, FASTING 106 MG/DL (70-100); POTASSIUM SERUM 4.3 MEQ/L (3.5-5.1); SODIUM LEVEL 133 MEQ/L (136-145); TOTAL PROTEIN 5.9 GM/DL (6.4-8.2)
[2020-06-09] MEDS ORDERED: LEVO750T13 PO (08:48)
[2020-06-09] MEDS: MULTIVITAMINS/MINERALS THERAP 1 TAB PO SCH (09:05)
[2020-06-09] MEDS: MIRALAX *UNIT DOSE* 17GM PACKET PO SCH (09:06)
[2020-06-09] MEDS: MORPHINE 15 MG SA TAB PO SCH (09:06)
[2020-06-09] MEDS: GABAPENTIN 300 MG CAP PO SCH (09:06)
[2020-06-09] MEDS: MOM 30ML SUSPENSION UDC PO SCH (09:06)
[2020-06-09] MEDS: ASPIRIN 81 MG ENTERIC TAB PO SCH (09:06)
--- NOTE | 2020-06-14 13:05 | DS ---
DATE OF ADMISSION: 06/06/2020 DATE OF DISCHARGE: 06/09/2020 ATTENDING PHYSICIAN: Susie Cody M.D. ADMITTING DIAGNOSIS: Right hip degenerative arthritis. OTHER DIAGNOSES: * Prediabetes. * Hypertension. * Gastroesophageal reflux disease. * Hyperlipidemia. DISCHARGE DIAGNOSIS: Right hip degenerative arthritis status post right total hip arthroplasty. HISTORY: Patient is a 59-year-old male with progressively worsening right hip pain and stiffness. He failed to improve with conservative measures. He continued to have symptoms with weightbearing activities and ADLs. He consented for an elective right total hip arthroplasty with Dr. Cody for his continued symptoms. OPERATION PERFORMED: Right total hip arthroplasty. HOSPITAL COURSE: The patient underwent a right total hip arthroplasty under spinal anesthesia which was uneventful. His hospital course was without complication and he worked with physical therapy per their protocol weightbearing as tolerated on the right lower extremity. Patient was discharged on oral pain medications and will resume his pre-operative medications and diet. Patient will take his anticoagulant and use his thromboembolic deterrent stockings as directed to prevent deep venous thrombosis. Patient will follow up in our office in 12-14 days for a wound check and staple removal. He is encouraged to contact our office sooner if there is any increase in pain, redness, drainage, numbness or tingling in the extremity, fever greater than 101 degrees or any other concerns. Please see medical records for additional details. RASHEEDA
== END 2020-06-09 11:03 | disposition home or self-care (01) | DRG 301 ==
LOC: M SDC 06:04 → EDSTATUS 07:30 → M MS5PR 10:50 → M SDC 10:50 → M MS5PR 10:50 → M SDC 06-09 11:03 → M MS5PR 06-09 11:03
PROVIDERS: ADMIT Orthopaedic Surgery; ATTEND Orthopaedic Surgery
PROC: 0SR90J9 Replacement of Right Hip Joint with Synthetic Substitute, Cemented, Open Approach (ICD-10-PCS; principal; 2020-06-06 07:30)
DX: M16.11 Unilateral primary osteoarthritis, right hip (principal); I10 Essential (primary) hypertension; Z79.899 Other long term (current) drug therapy; K21.9 Gastro-esophageal reflux disease without esophagitis; E78.5 Hyperlipidemia, unspecified; M54.5 Low back pain; M54.2 Cervicalgia; R91.8 Other nonspecific abnormal finding of lung field; J98.11 Atelectasis

== ENCOUNTER → 2021-01-13 | Outpatient (CLI) | payer MEDICARE ==
[~2021-01-13] MED LIST changes: +ECOT81TA5 PO; +GABA-283 PO; -GABA-845 PO; +LEVO750T13 PO; +PERC5TAB12 PO
--- NOTE | 2021-01-13 16:13 | REPVR ---
PROCEDURE INFORMATION: Exam: MR Lumbar Spine Without Contrast Exam date and time: 01/13/2021 3:07 PM Age: 60 years old Clinical indication: Low back pain; Additional info: Oth intervertebral disc deg R/O stenosis TECHNIQUE: Imaging protocol: Multiplanar magnetic resonance images of the lumbar spine without intravenous contrast. COMPARISON: NM Bone Scan Whole Body 06/06/2017 8:12 AM FINDINGS: Vertebral body heights are maintained. Multilevel Modic type 1 edematous degenerative endplate change. No evidence of acute lumbar spine fracture. Multilevel degenerative disc height loss. No cord compression. No abnormal cord signal. Conus medullaris terminates at the L1 level. Paravertebral soft tissues are unremarkable. L1-L2: Small central disc protrusion superimposed over broad-based disc bulge and facet hypertrophy cause mild canal narrowing. 0.4 cm small left posterolateral facet joint synovial cyst contributing to mild canal narrowing. Mild to moderate bilateral foraminal narrowing. L2-L3: Broad-based disc bulge and facet hypertrophy cause mild canal narrowing with mild right and moderate left foraminal narrowing. L3-L4: Broad-based disc bulge and facet hypertrophy cause mild canal narrowing with mild left and moderate right foraminal narrowing. L4-L5: Left paracentral inferiorly oriented disc extrusion causing effacement of the left lateral recess and compression of the traversing left L5 nerve root. Broad-based disc bulge and facet hypertrophy cause moderate right and mild left foraminal narrowing. No significant canal narrowing. L5-S1: Central disc protrusion superimposed over broad-based disc bulge causes mild canal narrowing. Along with facet hypertrophy there is mild to moderate bilateral foraminal narrowing. IMPRESSION: Multilevel advanced spondylotic changes of the lumbar spine, including a left paracentral disc extrusion at L4-L5 compressing the traversing left L5 nerve root, as detailed above. Electronically signed by: Trevon Silva On 01/13/2021 16:12:52 PM
== END ==
LOC: M PLARAD 15:06
PROVIDERS: ATTEND Physician Assistant
DX: M51.86 Other intervertebral disc disorders, lumbar region (principal)

== ENCOUNTER → 2021-02-10 | Outpatient (CLI) | payer MEDICARE ==
[2021-02-10 13:09] LABS: PLATELET COUNT, AUTOMATED 386 10^3/uL (150-450)
[2021-02-10 13:20] LABS: INR 0.84; PROTHROMBIN TIME 11.7 SECONDS (12.5-14.3)
[2021-02-10 13:21] LABS: PARTIAL THROMBOPLASTIN TIME 28.1 SECONDS (24.2-38.5)
[2021-02-10 13:36] LABS: COLLAGEN EPINEPHRINE 262 SECONDS (74-162)
[2021-02-10 13:56] LABS: COLLAGEN ADP 117 SECONDS (56-103)
== END ==
LOC: M PLALAB 09:51
PROVIDERS: ATTEND Physical Medicine & Rehabilitation
DX: Z01.812 Encounter for preprocedural laboratory examination (principal); Z79.899 Other long term (current) drug therapy; K21.9 Gastro-esophageal reflux disease without esophagitis; E11.9 Type 2 diabetes mellitus without complications

== ENCOUNTER → 2021-03-08 | Outpatient (CLI) | payer MEDICARE | LOC: M PLALAB 09:12 | PROVIDERS: ATTEND Nurse Practitioner Family | DX: Z12.5 Encounter for screening for malignant neoplasm of prostate (principal) | CPT/HCPCS: 36415; G0103 ==

== ENCOUNTER → 2021-03-09 | Outpatient (CLI) | payer MEDICARE ==
[2021-03-09 10:30] LABS: COLLAGEN EPINEPHRINE 122 SECONDS (74-162)
== END ==
LOC: M PLALAB 09:11
PROVIDERS: ATTEND Physician Assistant
DX: Z01.812 Encounter for preprocedural laboratory examination (principal)

== ENCOUNTER → 2022-05-02 | Outpatient (CLI) | payer MEDICARE, OTHER ==
[~2022-05-02] MED LIST changes: +LEVO1TAB40 PO; -LEVO750T13 PO
[2022-05-02 10:58] LABS: PLATELET COUNT, AUTOMATED 349 10^3/uL (150-450)
[2022-05-02 11:08] LABS: INR 0.88; PROTHROMBIN TIME 12.3 SECONDS (12.7-14.5)
[2022-05-02 11:17] LABS: COLLAGEN EPINEPHRINE 106 SECONDS (74-162)
== END ==
LOC: M LAB 10:23
PROVIDERS: ATTEND Physical Medicine & Rehabilitation
DX: M48.062 Spinal stenosis, lumbar region with neurogenic claudication (principal); Z79.899 Other long term (current) drug therapy

== ENCOUNTER → 2024-02-25 | Outpatient (CLI) | payer MEDICARE, OTHER ==
[~2024-02-25] MED LIST changes: -GABA-283 PO; +GABA-284 PO
== END ==
LOC: M RAD 10:57
PROVIDERS: ATTEND Nurse Practitioner Family
DX: K40.90 Unilateral inguinal hernia, without obstruction or gangrene, not specified as recurrent (principal)

== ENCOUNTER → 2024-09-23 | Outpatient (CLI) | payer MEDICARE, OTHER | LOC: M RAD 15:53 | PROVIDERS: ATTEND Physician Assistant | DX: M47.896 Other spondylosis, lumbar region (principal); M51.16 Intervertebral disc disorders with radiculopathy, lumbar region; M41.9 Scoliosis, unspecified; M25.78 Osteophyte, vertebrae; M51.26 Other intervertebral disc displacement, lumbar region ==